=== PATIENT | male | born 1995 | race Caucasian/White ===

== ENCOUNTER 2018-08-01 12:11 | Day surgery (SDC) | payer MEDICAID ==
[2018-08-01] MEDS ORDERED: Propofol 10 mg/ml Inj (20 ML) ONE (15:25)
[2018-08-01] MEDS ORDERED: Midazolam 2 MG/2 ML VIAL ONE (15:25)
[2018-08-01] MEDS ORDERED: Ciprofloxacin 400mg/200ml D5W 400 MG/200 ML BAG IVPB ONE (15:25)
[2018-08-01] MEDS: Gentamicin 80 mg in 0.9% NS 80 MG/100 ML BAG IVPB ONE ×2 (15:38→15:45)
[2018-08-01] MEDS ORDERED: Gentamicin 80 mg in 0.9% NS 80 MG/100 ML BAG IVPB ONE (15:46)
--- NOTE | 2018-08-01 15:48 | PCM.SURG1 ---
Surgeon's Initial Post Op Note - Surgeon's Notes Surgeon: Elle [employer] Panels Plater: MONET Type of Anesthesia: General LMA Anesthesia Administered By: Staff Pre-Operative Diagnosis: urethral stricture Operative Findings: pendolous urethral stricture Post-Operative Diagnosis: same Operation Performed: Cysto ballon dilitation OIU Specimen/Specimens Removed: NA Estimated Blood Loss: EBL {In ML}: 0 Blood Products Given: N/A Drains Used: No Drains Post-Op Condition: Good Date of Surgery/Procedure: 08/01/18 Time of Surgery/Procedure: 15:48
[2018-08-01] MEDS: HYDROmorphone 0.5 mg/0.5 ml ISec IVP PRN ×3 (16:00→16:31)
[2018-08-01 17:45] VITALS: PULSE 66; TEMP 98
[2018-08-01 17:47] VITALS: BP 112/70; RESP 18; O2SAT 100
--- NOTE | 2018-08-02 03:09 | OP ---
PROCEDURE DATE: 08/01/2018 PREOPERATIVE DIAGNOSIS: Urethral stricture. POSTOPERATIVE DIAGNOSIS: Mid pendulous urethral stricture. FINDINGS: Mid pendulous urethral stricture. PROCEDURES: Cystoscopy, balloon dilatation, and optical internal urethrotomy. DESCRIPTION OF PROCEDURE: As follows: The patient was asked to sign a detailed informed consent after explaining all risks, complications, and alternatives of this procedure. He accepted the risk, was brought into the room, and a time-out was taken according to the rules and regulations of [facility]. He was then draped and prepped in usual manner. A 2% Xylocaine gel was instilled per urethra. The patient was cystoscoped with a #21 Storz panendoscope. There was noted to be a mid pendulous urethral stricture. This was bypassed with a 0.038 sensor-tipped guidewire which was passed into the bladder, and a balloon was passed over the wire and inflated to the proper size. After appropriate was deflated, thereby dilating the urethral stricture. Residual fibers were cut with the OIU instrument. The scope was then passed through the posterior urethra and the prostatic urethra, which were normal. The bladder was inspected. There was +2 to 3 trabeculation, but no evidence of urothelial tumor or stones. Based on the above findings, the patient has had a longstanding stricture. The wire was left in place, and scope removed, and #20 Garfield tip catheter was passed over the wire. Alan Almeida MD
== END 2018-08-01 18:16 | disposition home or self-care (01) ==
LOC: C.SDS 12:11
PROVIDERS: ATTEND Urology
DX: N35.819 Other urethral stricture, male, unspecified site (principal)
CPT/HCPCS: 52275; J0744; J1170; J1580